=== PATIENT | female | born 1960 | race Caucasian/White ===

== ENCOUNTER 2018-01-14 16:40 | Emergency (ER) | payer BC ==
[~2018-01-14] VITALS: Ht 162.6 cm; Wt 79.8 kg
[2018-01-14 16:43] VITALS: Ht 162.6 cm; Wt 79.8 kg
[2018-01-14 17:40] VITALS: BP 122/73
== END 2018-01-14 17:40 | disposition home or self-care (01) ==
LOC: ED 16:40
DX: T78.1XXA Other adverse food reactions, not elsewhere classified, initial encounter (principal); L50.0 Allergic urticaria; X58.XXXA Exposure to other specified factors, initial encounter
CPT/HCPCS: J2930